=== PATIENT | male | born 1935 | race Caucasian/White ===

== ENCOUNTER → 2016-04-14 | Outpatient (CLI) | payer OTHER, BC ==
[~2016-04-14] VITALS: Ht 160 cm; Wt 79.4 kg
[~2016-04-14] MED LIST: ATROVENT H200 INHALA IH; BIAXIN500 MG PO; CARDURA4 MG PO; COZAAR100 MG PO; DULERA 200 MCG/13 GM IH; FLONASE16 G1 BOTH NARES; FLOVENT DISKUS1 DIS2 IH; LO-DOSE ASPIRIN81 M2 PO; MILLIPRED5 MG PO; MYAMBUTOL400 MG PO; PRAVACHOL40 MG PO; PROAIR HFA8.5 GM IH; PROVENTIL,2.5 MG/3 M IH; RIFAMPIN300 MG PO; SINGULAIR10 MG PO; SPIRIVA1 INHALATI IH
== END | disposition home or self-care (01) ==
LOC: OPR 08:39 → EDSTATUS 09:00 → OPR 09:00
PROC: 0BBF3ZX Excision of Right Lower Lung Lobe, Percutaneous Approach, Diagnostic (ICD-10-PCS; principal; 2016-04-14)
DX: J84.89 Other specified interstitial pulmonary diseases (principal); Z87.891 Personal history of nicotine dependence; I10 Essential (primary) hypertension; J45.909 Unspecified asthma, uncomplicated; E78.5 Hyperlipidemia, unspecified; G47.33 Obstructive sleep apnea (adult) (pediatric); M19.90 Unspecified osteoarthritis, unspecified site; Z96.643 Presence of artificial hip joint, bilateral
CPT/HCPCS: 71010; 77012; 87070; 87075; 87116; 87205; 87206; 88305; 88312; 88342 TC; J3010